=== PATIENT | female | born 1980 | race Caucasian/White ===

== ENCOUNTER 2023-02-25 19:47 | Emergency (ER) | payer BC, SELFPAY ==
[2023-02-25 19:50] VITALS: BP 163/103; PULSE 112; RESP 18; TEMP 36.3; O2SAT 100
--- NOTE | 2023-02-25 19:54 | ECG_ITS ---
Measurements Intervals Mobile Rate: 98 P: 54 AL: 137 QRS: 15 QRSD: 88 T: 31 QT: 334 QTc: 428 Interpretive Statements SINUS RHYTHM NO PREVIOUS ECG AVAILABLE FOR COMPARISON Electronically Signed On 02-26-2023 14:23:20 CDT by Makeda Wright M.D.
[2023-02-25 20:09] LABS: Basophils Absolute Auto 0.1 K/mm3 (0.0-0.1); Basophils Percent Auto 0.7 % (0.2-1.2); Eosinophils Absolute Auto 0.1 K/mm3 (0-0.3); Eosinophils Percent Auto 1.7 % (0-4.4); Hematocrit 43.2 % (37.0-47.0); Hemoglobin 13.7 g/dL (12.0-15.0); Immature Granulocyte Absolute 0.02 K/mm3 (0.00-0.031); Immature Granulocyte Percent A 0.2 % (0-0.5); Lymphocytes Absolute Auto 2.25 K/mm3 (0.9-3.2); Lymphocytes Percent Auto 28.1 % (18.3-44.2); Mean Corpuscular HGB Conc 31.7 g/dl (32-36); Mean Corpuscular Hemoglobin 27.3 pg (26-34); Mean Corpuscular Volume 86.1 fl (80-100); Mean Platelet Volume 9.4 fl (7.4-10.4); Monocytes Absolute Auto 0.7 K/mm3 (0.1-0.6); Monocytes Percent Auto 8.1 % (2.6-8.5); Neutrophils Absolute Auto 4.9 K/mm3 (1.3-6.7); Neutrophils Percent Auto 61.2 % (45.5-73.1); Platelet Count Result 246 k/mm3 (150-375); Red Blood Count 5.02 M/mm3 (4.2-5.4); Red Cell Distribution Width 13.9 % (11.5-14.5)
[2023-02-25 20:23] LABS: INR 0.9; Prothrombin Time 12.2 Seconds (11.1-14.7)
[2023-02-25 20:24] LABS: Partial Thromboplastin Time 20.2 SECONDS (22.3-36.8)
[2023-02-25 20:26] LABS: Alanine Aminotransferase 33 U/L (6-35); Albumin Level 4.2 g/dL (3.5-5.1); Alkaline Phosphatase 72 U/L (38-126); Anion Gap 4 mmol/L (8-16); Aspartate Amino Transferase 29 U/L (14-36); Bilirubin,Total 0.4 mg/dL (0.2-1.3); Blood Urea Nitrogen 15 mg/dL (7-17); Carbon Dioxide 27 mmol/L (22-30); Chloride 102 mmol/L (98-107); Estimated CRCL calculation 125 ml/min; Estimated Glomerular Filt Rate > 60; Glucose 144 mg/dL (65-110); Potassium 4.1 mmol/L (3.4-5.0); Sodium 133 mmol/L (137-145)
[2023-02-25 20:37] LABS: Troponin I < 0.012 ng/mL (0.000-0.034)
--- NOTE | 2023-02-25 21:35 | ED.GENADULT ---
HPI - General Adult General Chief complaint: Arrhythmia/Palpitations Stated complaint: palpitations Time Seen by Provider: 02/25/23 21:26 Source: patient Mode of arrival: ambulatory Limitations: no limitations History of Present Illness HPI narrative: This is a 43-year-old female with PMH of anxiety, depression, PTSD who presents to the ED with chief complaint of palpitations onset just prior to arrival. Patient states that she was getting ready to lay down on the couch when she started to feel her heart beat racing. She states she also had some numbness and tingling in the center of the chest. Also reports that her jaw was clenching bilaterally and she was having some tingling in the hands. Denies any chest pain or shortness of breath. She reports history of SVT in the past and has had an ablation done for that. Denies any recent stressors. Denies fevers, chills, abdominal pain, nausea, vomiting, diarrhea, headache, syncope, urinary symptoms. As I interview her she states her symptoms have almost completely resolved since being here. Related Data Allergies Allergy/AdvReac Type Severity Reaction Status Date / Time CITALOPRAM HYDROBROMIDE Allergy Unknown Uncoded 02/25/23 19:48 Review of Systems Review of Systems: All systems as dictated in HPI Exam Narrative: GENERAL: Well-appearing, well-nourished, and in no acute distress. HEAD: Normocephalic, atraumatic. EYES: PERRLA and EOMI. ENT: Nares clear, no rhinorrhea or epistaxis. Mucous membranes moist. Oropharynx without tonsillar hypertrophy exudate or other lesions. NECK: Supple. No adenopathy or masses. CHEST: No respiratory distress. Clear to auscultation. No wheezes rales or rhonchi HEART: Regular rate and rhythm. No murmur heard. Normal peripheral pulses. ABDOMEN: Soft, nontender, nondistended, normal active bowel sounds. MSK: Normal range of motion. No edema. SKIN: Warm, dry, no rash. NEURO: Alert and oriented x3. No focal deficits. PSYCH: Anxious mood. Appropriate affect. Course Course Emergency Course: Reevaluation 3608: Patient is still not having any chest palpitations or chest pain. She feels well and ready to go home. Vital Signs Vital signs: Vital Signs Temperature 97.4 F L 02/25/23 19:50 Pulse Rate 112 H 02/25/23 19:50 Respiratory Rate 18 02/25/23 19:50 Blood Pressure 163/103 H 02/25/23 19:50 Pulse Oximetry 100 02/25/23 19:50 Temperature 97.4 F L 02/25/23 19:50 Pulse Rate 86 02/26/23 00:02 Respiratory Rate 16 02/26/23 00:02 Blood Pressure 147/95 H 02/26/23 00:02 Pulse Oximetry 98 02/26/23 00:02 Medical Decision Making MDM Narrative Medical decision making narrative: This is a 43-year-old female who presents to the ED with chief complaints of palpitations onset just prior to arrival. Denies chest pain or shortness of breath. Vitals show initial tachycardia and elevated blood pressure but otherwise benign. Physical exam is benign. Her heart rate soon normalized after lying down in the bed for a while. He is symptom-free at the time of my interview. EKG shows normal sinus rhythm. Serial troponins negative. She remained symptom-free during her entire stay in the ED. Lab work is unremarkable. We discussed that she may need to follow-up with your primary care doctor if this continues to occur she will need a Holter monitor. She does have history of SVT in the past that was corrected with ablation. Pt will be discharged in stable condition. Return precautions given and supportive measures discussed. Pt is understanding and agreeable with plan for discharge and follow-up with PCP. Vital Signs Vital Signs: Vital Signs Temperature 97.4 F L 02/25/23 19:50 Pulse Rate 112 H 02/25/23 19:50 Respiratory Rate 18 02/25/23 19:50 Blood Pressure 163/103 H 02/25/23 19:50 Pulse Oximetry 100 02/25/23 19:50 Temperature 97.4 F L 02/25/23 19:50 Pulse Rate 86 02/26/23 00:02 Respiratory Ra
[2023-02-25 22:13] VITALS: BP 149/78; PULSE 84; RESP 18; O2SAT 100
[2023-02-26 00:02] VITALS: BP 147/95; PULSE 86; RESP 16; O2SAT 98
== END 2023-02-26 00:04 | disposition home or self-care (01) ==
PROVIDERS: Emergency Medicine; Emergency Provider Physician Assistant
DX: R00.2 Palpitations (principal)
CPT/HCPCS: 36415; 80053; 84484; 85025; 85610; 85730; 93005; 99284